=== PATIENT | female | born 1985 | race Caucasian/White ===

== ENCOUNTER → 2017-01-02 | Outpatient (CLI) | payer OTHER | LOC: FIMAGING 13:00 | PROVIDERS: ATTEND Obstetrics & Gynecology | DX: O99.281 Endocrine, nutritional and metabolic diseases complicating pregnancy, first trimester (principal); Z3A.13 13 weeks gestation of pregnancy ==

== ENCOUNTER → 2017-01-27 | Outpatient (CLI) | payer OTHER | LOC: BMCIMAGING 13:51 | PROVIDERS: ATTEND Midwife | DX: M79.661 Pain in right lower leg (principal); Z3A.16 16 weeks gestation of pregnancy ==

== ENCOUNTER → 2017-02-18 | Outpatient (CLI) | payer OTHER | LOC: FIMAGING 07:54 | PROVIDERS: ATTEND Obstetrics & Gynecology | DX: O99.282 Endocrine, nutritional and metabolic diseases complicating pregnancy, second trimester (principal); E03.9 Hypothyroidism, unspecified; Z3A.19 19 weeks gestation of pregnancy ==

== ENCOUNTER → 2017-06-30 | Outpatient (CLI) | payer OTHER | LOC: FIMAGING 08:57 | PROVIDERS: ATTEND Obstetrics & Gynecology | DX: O26.893 Other specified pregnancy related conditions, third trimester (principal); Z20.828 Contact with and (suspected) exposure to other viral communicable diseases; Z3A.38 38 weeks gestation of pregnancy ==

== ENCOUNTER → 2017-07-22 | Outpatient (CLI) | payer OTHER ==
[~2017-07-22] MED LIST: GADOBUTROL 10 ML VIAL IVP ONE
== END ==
LOC: FIMAGING 12:53
PROVIDERS: ATTEND Midwife
DX: K62.89 Other specified diseases of anus and rectum (principal)
CPT/HCPCS: A9585

== ENCOUNTER → 2018-10-20 | Outpatient (CLI) | payer OTHER | LOC: CIMAGING 07:17 | PROVIDERS: ATTEND Midwife | DX: R10.2 Pelvic and perineal pain (principal) | CPT/HCPCS: 76856-PO ==